=== PATIENT | female | born 1965 | race Caucasian/White ===

== ENCOUNTER 2019-07-24 06:05 | Emergency (ER) | payer MEDICAID, SELFPAY ==
[2019-07-24 06:07] VITALS: BP 163/101; PULSE 84; RESP 17; TEMP 36.6; O2SAT 98; BMI 42.7
[2019-07-24 06:17] VITALS: TEMP 36.6
--- NOTE | 2019-07-24 06:18 | ED.VIS.GEN ---
History of Present Illness Chief Complaint: Dental Narrative: This patient is a 54-year-old female who presents with dental pain. She chipped her tooth a month ago and has had some pain since that time. However today she had increased pain and swelling. Her pain radiates towards her ear. This originates from 1 of her right lower teeth. She noticed an area of swelling and abscess. She is not diabetic. She denies fevers. She has some mild jaw swelling. Past Medical History - Allergies and Home Meds Allergies/Adverse Reactions: Allergies Penicillins [PCN] Allergy (Verified 07/24/19 06:10) Angioedema Primary Care Physician: Harsh Slater MD [Primary Care Provider] - Past Medical History: - - Hypertension, hypothyroidism Smoking Status: Never smoker Review of Systems All systems negative except as indicated General: Denies: Fever ENT: Reports: - - Dental pain Cardiovascular: Denies: Chest pain Respiratory: Denies: Dyspnea Gastrointestinal: Denies: Nausea, Vomiting Neurological: Denies: Headache Physical Exam Vital Signs/Narrative: Vital Signs Temp Pulse Resp BP Pulse Ox 07/24/19 06:17 97.9 F 07/24/19 06:07 97.9 F 84 17 163/101 H 98 General: Well nourished Head: Normocephalic Eyes: EOMI ENT: Moist mucous membranes, - - Widespread dental decay with focal tenderness on percussion and focal dental abscess originating at the right mandibular second molar Neck: Supple Cardiovascular: Regular rate Respiratory: No distress Skin: Normal color Neurological: Alert Psychological: Normal affect Diagnostic/Tx/Re-eval - Medical Decision Making Patient presents with a dental abscess. Inferior alveolar block was attempted but inadequate was achieved. I attempted a periosteal block but the patient was unable to tolerate this and grabbed my hands and pushed me away. As she is unable to tolerate further attempts as an alternative we will have her follow-up with dentistry. He was placed on oral antibiotics. She was given a list of dental clinics. ED Disposition - Plan for ED Patient: Disposition: Home or Assisted Living Diagnosis: Dental abscess Instructions: Dental Abscess Prescriptions: Clindamycin HCl [Cleocin] 300 mg PO Q6H #40 cap Prescription Printed Referrals: Harsh Slater MD [Primary Care Provider] -
== END 2019-07-24 06:53 | disposition home or self-care (01) ==
PROVIDERS: Emergency Provider Emergency Medicine; Family Provider Internal Medicine; PCP Internal Medicine
DX: K04.7 Periapical abscess without sinus (principal); I10 Essential (primary) hypertension; E03.9 Hypothyroidism, unspecified
CPT/HCPCS: 64400; 41800; 64402; 99282

== ENCOUNTER → 2020-04-28 17:54 | Outpatient (REF) | payer MEDICAID, SELFPAY | LOC: MTDU 17:54 | PROVIDERS: PCP Internal Medicine; Visit Provider Internal Medicine | DX: Z11.59 Encounter for screening for other viral diseases (principal); R50.9 Fever, unspecified | CPT/HCPCS: 87635; 94799; U0003 ==

== ENCOUNTER 2023-08-19 19:42 | Emergency (ER) | payer BC, MEDICAID, SELFPAY ==
[2023-08-19 19:43] VITALS: BP 179/94; PULSE 95; RESP 16; TEMP 36.6; O2SAT 99; BMI 41.7
[2023-08-19 20:18] LABS: Bacteria 0 SEEN /hpf (None Seen); Mucous, Urine 0 SEEN /hpf (<or=2+); Red Blood Cells-Urine 0 SEEN /hpf (0-5); Squamous Epithelial Cells - UA 0 SEEN /hpf (5-10); White Blood Cells 0 SEEN /hpf (0-5)
[2023-08-19 20:22] LABS: Color, Urine Yellow (Yellow); Glucose, Dipstick Normal (Normal); Ketone-Dipstick Negative (Negative); Leukocyte Esterase-Dipstick 25 /ul (Negative); Nitrite-Dipstick Negative (Negative); Occult Blood-Urine 10 /ul (Negative); Protein-Dipstick Negative (Negative); Urine Bilirubin Dipstick Negative (Negative); Urine Clarity Clear (Clear); Urine Urobilinogen Normal (Normal)
--- NOTE | 2023-08-19 20:29 | EDS_ITS ---
HPI History of Present Illness Chief Complaint: Complaint Informant: patient Narrative Narrative: 58-year-old female presenting to the emergency room with pelvic pressure. Patient states that she went to urgent care tonight because she was experiencing pelvic pressure and difficulty urinating. She states that when she starts to urinate she is able to empty her bladder. Urgent care sent her to emergency for further evaluation. Patient has been noting a left lower quadrant abdominal pain. She notes constipation today. She states she has had a bowel movement though very small pieces of stool. She notes a temperature of 99 degrees. No history of diverticulitis or kidney stones. She notes a pain in the left flank. [facility] Medical History (Updated 08/19/23 @ 22:[address] Roe Ambrosio DO) Hypertension Hypothyroidism Home Medications levothyroxine 175 mcg tablet 175 mcg PO DAILY 05/26/16 [History Last Taken Unkn own] lisinopril 20 mg-hydrochlorothiazide 25 mg tablet (Zestoretic) 1 ea PO DAILY 05/26/16 [History Last Taken Unknown] clindamycin HCl 300 mg capsule 300 mg PO Q6H #40 caps 07/24/19 [Rx Last Taken Un known] cetirizine 10 mg tablet 10 mg PO QHS 08/19/23 [History Last Taken Unknown] ciprofloxacin HCl 500 mg tablet 500 mg PO BID #14 TABLETS 08/19/23 [Rx Last Taken Unknown] famotidine 20 mg tablet 20 mg PO DAILY 08/19/23 [History Last Taken Unknown] fexofenadine 180 mg tablet 180 mg PO DAILY 08/19/23 [History Last Taken Unknown] metronidazole 500 mg tablet 500 mg PO Q8H #21 tabs 08/19/23 [Rx Last Taken Unknown] Allergy/AdvReac Type Severity Reaction Status Date / Time Penicillins [PCN] Allergy Angioedema Verified 08/19/23 19:45 Surgical History History of section Social History Smoking Status: Never smoker ROS ROS ED Constitutional Constitutional ED: Reports fever(s) and subjective; Denies chills or weight loss Eyes Eyes: Denies change in vision or diplopia ENT ENT ED: Denies ear pain, rhinorrhea or sore throat Cardiovascular Cardiovascular: Denies chest pain, orthopnea, palpitations or racing heartbeat Respiratory/Chest Respiratory/Chest: Denies cough, dyspnea or orthopnea Gastrointestinal Gastrointestinal: Reports abdominal pain and constipation; Denies diarrhea, nausea or vomiting Genitourinary Genitourinary ED: Denies dysuria, hematuria or urinary frequency Musculoskeletal Musculoskeletal: Denies arthralgias or myalgias Integumentary Denies abscess or rash Neurologic Neurologic: Denies headache(s) or weakness Psychiatric Psychiatric: Denies anxiety, depression, suicidal ideation or suicidal thoughts Endocrine Endocrinology: Denies polydipsia, polyphagia or polyuria Allergic/Immunologic Allergic/Immunologic ED: Denies mouth swelling, tongue swelling or urticaria EXAM Physical Exam Const Vital Signs: 08/19/23 19:43 08/19/23 22:31 Temperature 98 F 20 F L Temperature Source Temporal Pulse Rate 95 92 Respiratory Rate 16 Blood Pressure 179/94 H 159/78 H Blood Pressure Mean 122 105 Pulse Ox 99 98 Oxygen Delivery Method Room Air Positive well nourished, well developed and obese General Appearance ED: well developed Nutritional Appearance: obese HEENT Reports normocephalic, head/scalp atraumatic and moist mucous membranes Eyes PERRL and EOMs intact bilaterally Neck no lymphadenopathy, supple and no JVD Resp normal respiratory effort and clear to auscultation bilaterally Cardio regular rate, regular rhythm and no murmurs GI Auscultation: normoactive bowel sounds Palpation: soft and tender LLQ; Negative for guarding or rebound tenderness present Back/Spine no CVA tenderness and normal ROM Extremity normal to inspection General Extremety ED: Negative for edema General Extremity: Negative for edema Neuro oriented x3 and CN's II-XII intact bilaterally Sensorium / Orientation: alert Motor Exam: strength 5/5 throughout Psych mental status grossly normal Mood & Affect: Negative for depressed or tearful Skin no rashes or lesions noted and no wounds MDM MDM MDM Narrative Medical decision making narrative: White count slightly elevated at 12.5. Glucose of 110 creatinine 1.08. Urinalysis is essentially negative. CT abdomen pelvis demonstrated sigmoid diverticular disease. No significant areas of inflammation noted. Clinically I have a 58-year-old female with constipation left lower quadrant pain diverticular disease and slightly elevated white count. I think is reasonable to place her on antibiotics for diverticulitis. She was advised that should her symptoms not improved she should follow-up. She can return to the emergency department if worsening. We will be treating with anti-inflammatories. I did spend a significant mount of time educating the patient on diverticulosis and other possible diagnoses. Lab Data Attestation: I reviewed the patient's lab results. Labs: Laboratory Results - last 24 hr 08/19/23 08/19/23 20:12 20:35 WBC 12.5 H RBC 4.73 Hgb 13.0 Hct 41.5 MCV 87.7 MCH 27.5 MCHC 31.3 L RDW Std Deviation 42.5 RDW Coeff of Shawn 13.2 Plt Count 304 MPV 10.2 Immature Gran % (Auto) 0.300 Neut % (Auto) 61.8 Lymph % (Auto) 28.3 [place] % (Auto) 8.0 Eos % (Auto) 1.0 Baso % (Auto) 0.6 Absolute Neuts (auto) 7.7 Absolute Lymphs (auto) 3.52 Nucleated RBC % 0 Sodium 135 L Potassium 3.7 Chloride 99 Carbon Dioxide 34.0 H Anion Gap 2 L BUN 25 H Creatinine 1.08 H Estim Creat Clear Calc 47.83 Est GFR (MDRD) Af Amer 67 Est GFR (MDRD) Non-Af 55 L BUN/Creatinine Ratio 23.1 H Glucose 110 H Calcium 9.3 Urine Color Yellow Urine Clarity Clear Urine pH 6.0 Ur Specific [place] 1.010 Urine Protein Negative Urine Glucose (UA) Normal Urine Ketones Negative Urine Occult Blood 10 H Urine Nitrite Negative Urine Bilirubin Negative Urine Urobilinogen Normal Ur Leukocyte Esterase 25 H Urine RBC 0 SEEN Urine WBC 0 SEEN Ur Squamous Epith Cells 0 SEEN Urine Bacteria 0 SEEN Urine Mucus 0 SEEN Radiography Diagnostic Testing: Clinical Impression(s) from Imaging Studies Abdomen/Pelvis CT 08/19/23 21:05 IMPRESSION: Minor diverticular changes of the colon without evidence for acute diverticulitis.. No evidence for small bowel obstruction or other acute abnormality Electronically Signed: Andrews Bullard MD at 22:05 EST Reading Location ID and State: [facility] / [place] Tel , Service support , Differential Diagnosis Abdominal Pain: Appendicitis, Bowel obstruction and UTI Discharge Plan Triage Chief Complaint: Complaint ED Provider: Roe Ambrosio Dx/Rx/DC Orders Clinical Impression: Diverticulosis, Abdominal pain Instructions: Abdominal Pain, ED Diverticulosis Prescriptions: New metronidazole [metronidazole] 500 mg tablet 500 mg PO Q8H Qty: 21 0RF ciprofloxacin HCl [ciprofloxacin HCl] 500 mg tablet 500 mg PO BID Qty: 14 0RF No Action levothyroxine 175 MCG tablet 175 mcg PO DAILY lisinopril-hydrochlorothiazide [Zestoretic] 1 EACH tablet 1 ea PO DAILY clindamycin HCl 300 MG capsule 300 mg PO Q6H Qty: 40 0RF fexofenadine 180 mg tablet 180 mg PO DAILY cetirizine 10 mg tablet 10 mg PO QHS famotidine 20 mg tablet 20 mg PO DAILY Primary Care Provider: Harsh Slater Referrals: Harsh Slater MD [Primary Care Provider] - 3-5 Days if not improving Disposition Disposition: Home, Self Care Discharge Date/Time: 08/19/23 22:36
[2023-08-19] MEDS: 0.9% Normal Saline (1000mL) 1,000 ML 125 ML IV (20:40)
[2023-08-19 20:43] LABS: Absolute Lymphocyte Count 3.52 X10^3/uL (0.83-4.51); Absolute Neutrophil Count 7.7 X10^3/uL (2.0-7.7); Basophil# 0.08 X10^3/uL; Basophil% 0.6 % (0-1); Eosinophil# 0.12 X10^3/uL; Hematocrit 41.5 % (37-47); Lymphocyte # 3.52 X10^3/ul (0.83-4.51); Lymphocyte % 28.3 % (19-41); Mean Corp Hgb Conc 31.3 g/dL (32-36); Mean Corpuscular Hgb 27.5 pg (27.0-32.0); Mean Corpuscular Volume 87.7 fL (81-99); Mean Platelet Vol. 10.2 fl (6.2-12.0); Monocyte# 0.99 X10^3/uL; NRBC Flagged by Analyzer 0 % (0-5); Neutrophil % 61.8 % (47-70); Platelet Count 304 K/mm3 (150-450); RBC Distribution Width CV 13.2 % (11.6-14.6); RBC Distribution Width SD 42.5 fl (35.1-43.9); Red Blood Count 4.73 M/mm3 (4.2-5.4); White Blood Count 12.5 K/mm3 (4.4-11.0)
[2023-08-19 20:57] LABS: Anion Gap 2 (5-15); BUN 25 mg/dL (7-18); BUN/Creat Ratio 23.1 RATIO (10-20); Calcium,Total 9.3 mg/dL (8.5-10.1); Chloride 99 mmol/L (98-107); Creatinine, Serum 1.08 mg/dL (0.55-1.02); EST Glomerular Filtration Rate 55 mL/min (>60); Est Glom Filt Rate - Afr Amer 67 mL/min (>60); Estimated Creatinine Clearance 47.83 ml/min; Glucose 110 mg/dL (74-106); Potassium 3.7 mmol/L (3.5-5.1); Sodium Level 135 mmol/L (136-145)
--- NOTE | 2023-08-19 21:05 | CT_ITS ---
STUDY: CT ABDOMEN AND PELVIS WITH CONTRAST REASON FOR EXAM: Female, 58 years old. LLQ pain RADIATION DOSAGE (If Supplied By Facility): CTDIvol = ( 16.95 ) mGy, DLP = ( 1293.30 ) mGycm TECHNIQUE: Transaxial images were obtained from the dome of the diaphragm to the symphysis pubis without oral contrast. IV 100mL [id number]-[id number] was administered. Sagittal and coronal images were reconstructed. Individualized dose optimization techniques were used for this CT. COMPARISON: September 23, 2015 FINDINGS: The visualized lung bases are unremarkable. The visualized portions of the heart are within normal limits. Liver is normal size. There are 2 tiny hypoattenuated densities within the right lobe which are too small to characterize but most likely represent cysts. Bile ducts are not dilated.. Normal gallbladder and extrahepatic biliary system. Normal spleen. Normal pancreas. Normal bilateral adrenal glands. Normal right kidney. Normal left kidney. Normal visualized stomach. Normal small intestine. Minor diverticular disease of the colon without evidence for acute diverticulitis. No evidence for acute appendicitis. Minor atherosclerotic changes of the aorta without evidence for aneurysm. Normal inferior vena cava. Normal retroperitoneum. Normal urinary bladder. Normal abdominal wall. Lumbar spine demonstrates mild spondylosis. CT/Abdomen/Pelvis W IV Cont ONLY IMPRESSION: Minor diverticular changes of the colon without evidence for acute diverticulitis.. No evidence for small bowel obstruction or other acute abnormality Electronically Signed: Andrews Bullard MD at 22:05 EST ,
[2023-08-19] MEDS: Ciprofloxacin 500 MG Tablet PO (22:28)
[2023-08-19] MEDS: metroNIDAZOLE 500 MG Tablet PO (22:28)
[2023-08-19 22:31] VITALS: BP 159/78; PULSE 92; TEMP -6.6; TEMP 20; O2SAT 98
== END 2023-08-19 22:36 | disposition home or self-care (01) ==
PROVIDERS: Emergency Provider Emergency Medicine; PCP Internal Medicine; Visit Provider Emergency Medicine
DX: K57.30 Diverticulosis of large intestine without perforation or abscess without bleeding (principal); I10 Essential (primary) hypertension; E66.9 Obesity, unspecified
CPT/HCPCS: 74177; 80048; 81001; 85025; 96360; 96361; 99284; J7030; Q9967; A4216

== ENCOUNTER → 2024-10-04 | Outpatient (CLI) | payer MEDICAID, SELFPAY ==
[2024-10-07 09:07] LABS: Alternaria tenuis <0.10 kU/L (Class 0); Ash, White <0.10 kU/L (Class 0); Aspergillus fumigatus <0.10 kU/L (Class 0); Bermuda Grass <0.10 kU/L (Class 0); Birch <0.10 kU/L (Class 0); Black Walnut <0.10 kU/L (Class 0); Cat Hair / Dander,Stand <0.10 kU/L (Class 0); Cedar, Mountain <0.10 kU/L (Class 0); Cladosporium herbarum <0.10 kU/L (Class 0); Cockroach, American <0.10 kU/L (Class 0); Cottonwood <0.10 kU/L (Class 0); D farinae Mite <0.10 kU/L (Class 0); D pteronyssinus <0.10 kU/L (Class 0); Dog Epithelia <0.10 kU/L (Class 0); Elm, American White <0.10 kU/L (Class 0); Immunoglobulin E 86 IU/mL (6-495); Maple/Box Elder <0.10 kU/L (Class 0); Mouse Urine <0.10 kU/L (Class 0); Mulberry, White <0.10 kU/L (Class 0); Oak, White <0.10 kU/L (Class 0); Pecan <0.10 kU/L (Class 0); Penicillium Notatum <0.10 kU/L (Class 0); Pigweed, Rough <0.10 kU/L (Class 0); Ragweed, Short/Common <0.10 kU/L (Class 0); Russian Thistle <0.10 kU/L (Class 0); Sheep Sorrel <0.10 kU/L (Class 0); Sycamore, American <0.10 kU/L (Class 0); Timothy Grass <0.10 kU/L (Class 0)
== END | disposition home or self-care (01) ==
PROVIDERS: PCP Internal Medicine; Referring Provider Otolaryngology; Visit Provider Otolaryngology
DX: T78.40XA Allergy, unspecified, initial encounter (principal); X58.XXXA Exposure to other specified factors, initial encounter
CPT/HCPCS: 36415; 82785; 86003

== ENCOUNTER → 2024-11-04 | Outpatient (CLI) | payer MEDICAID, SELFPAY ==
--- NOTE | 2024-11-04 17:58 | CT_ITS ---
PROCEDURE: SINUS/FACIAL BONE REASON FOR EXAM: Sinus issues since August. TECHNIQUE: Contiguous axial scans of 1.25 mm slice thicknesses. Sagittal and coronal reconstruction images were obtained. One or more dose reduction techniques were used (e.g., automated exposure control, adjustment of mA and/or kv according to patient size, use of iterative reconstruction technique). CONTRAST: Not given. COMPARISON: No relevant prior. FINDINGS: Frontal: Frontal sinuses and frontoethmoidal recesses appear clear. Ethmoid: Ethmoid air cells appear clear. Sphenoid: Sphenoid sinuses and sphenoethmoidal recesses appear clear. Maxillary: Mucoperiosteal thickening, floor of the left maxillary sinus. The ostiomeatal units appear widely patent. Turbinates: Unremarkable. Nasal Septum: Mild rightward deviation of the nasal septum. No large nasal septal spur Mastoids/Middle Ears: Clear at visualized levels. Visualized intracranial structures are unremarkable. No suspicious contrast enhancement. CT/Sinus/Facial Bone IMPRESSION: Inflammatory changes of the left maxillary sinus. Reading Location: [facility]
== END | disposition home or self-care (01) ==
PROVIDERS: PCP Internal Medicine; Referring Provider Otolaryngology; Visit Provider Otolaryngology
DX: J32.9 Chronic sinusitis, unspecified (principal)
CPT/HCPCS: 70486